=== PATIENT | female | born 1980 | race Two or more races ===

== ENCOUNTER 2020-03-15 06:00 | Day surgery (SDC) | payer OTHER | END 2020-03-15 09:35 | disposition home or self-care (01) | LOC: AMB-ENDOS 06:00 | PROVIDERS: ATTEND Surgery | DX: K29.50 Unspecified chronic gastritis without bleeding (principal); Z20.828 Contact with and (suspected) exposure to other viral communicable diseases ==

== ENCOUNTER 2021-05-22 12:05 | Outpatient (CLI) | payer OTHER | END 2021-05-22 12:38 | disposition home or self-care (01) | LOC: MAMO-SONO 12:05 | PROVIDERS: ATTEND Specialist | DX: E04.1 Nontoxic single thyroid nodule (principal); N64.59 Other signs and symptoms in breast; Z12.31 Encounter for screening mammogram for malignant neoplasm of breast ==

== ENCOUNTER 2021-10-23 06:00 | Day surgery (SDC) | payer OTHER ==
[2021-10-23] MEDS ORDERED: ULTRACET PO (12:39)
[2021-10-23] MEDS ORDERED: NEXIUM 24HR20 M1 PO (12:40)
[2021-10-23] MEDS ORDERED: MAGNESIUM CITR100 GM PO (12:40)
== END 2021-10-23 15:50 | disposition home or self-care (01) ==
LOC: CIR.AMB 06:00
PROVIDERS: ATTEND Surgery
DX: K80.10 Calculus of gallbladder with chronic cholecystitis without obstruction (principal); K43.2 Incisional hernia without obstruction or gangrene; G47.33 Obstructive sleep apnea (adult) (pediatric); Z98.84 Bariatric surgery status; K21.9 Gastro-esophageal reflux disease without esophagitis; E66.9 Obesity, unspecified

== ENCOUNTER 2022-05-27 06:41 | Outpatient (CLI) | payer OTHER ==
[~2022-05-27 06:41] MED LIST: MAGNESIUM CITR100 GM PO; NEXIUM 24HR20 M1 PO; ULTRACET PO
== END 2022-05-27 12:58 | disposition home or self-care (01) ==
LOC: LAB 06:41
PROVIDERS: ATTEND Obstetrics & Gynecology
DX: E11.9 Type 2 diabetes mellitus without complications (principal); E03.9 Hypothyroidism, unspecified; N39.0 Urinary tract infection, site not specified; Z11.4 Encounter for screening for human immunodeficiency virus [HIV]; D50.9 Iron deficiency anemia, unspecified; E78.2 Mixed hyperlipidemia; Z12.11 Encounter for screening for malignant neoplasm of colon; M25.50 Pain in unspecified joint; E79.0 Hyperuricemia without signs of inflammatory arthritis and tophaceous disease; D51.9 Vitamin B12 deficiency anemia, unspecified; Z01.818 Encounter for other preprocedural examination; E55.9 Vitamin D deficiency, unspecified; D64.89 Other specified anemias; N30.00 Acute cystitis without hematuria; E03.8 Other specified hypothyroidism; D68.8 Other specified coagulation defects; N72 Inflammatory disease of cervix uteri; R10.0 Acute abdomen; N95.1 Menopausal and female climacteric states; E28.39 Other primary ovarian failure; E04.1 Nontoxic single thyroid nodule; E78.00 Pure hypercholesterolemia, unspecified; E08.00 Diabetes mellitus due to underlying condition with hyperosmolarity without nonketotic hyperglycemic-hyperosmolar coma (NKHHC)

== ENCOUNTER 2022-05-27 07:42 | Outpatient (CLI) | payer OTHER | END 2022-05-27 07:52 | disposition home or self-care (01) | LOC: MAMO-SONO 07:42 | PROVIDERS: ATTEND Obstetrics & Gynecology | DX: Z12.31 Encounter for screening mammogram for malignant neoplasm of breast (principal); N60.11 Diffuse cystic mastopathy of right breast; N60.12 Diffuse cystic mastopathy of left breast ==

== ENCOUNTER 2022-09-10 06:22 | Day surgery (SDC) | payer OTHER ==
[~2022-09-10] VITALS: Ht 170.2 cm; Wt 63.0 kg
[2022-09-10] MEDS ORDERED: MIRALAX17 GM PO (09:42)
[2022-09-10] MEDS ORDERED: SURFAK240 M1 PO (09:42)
[2022-09-10] MEDS ORDERED: PERCOCET 5-3251 EACH PO (09:42)
[2022-09-10] MEDS ORDERED: NEURONTIN600 M1 PO (09:43)
== END 2022-09-10 13:00 | disposition home or self-care (01) ==
LOC: CIR.AMB 06:22
PROVIDERS: ATTEND Surgery
DX: K40.90 Unilateral inguinal hernia, without obstruction or gangrene, not specified as recurrent (principal); K42.0 Umbilical hernia with obstruction, without gangrene; Z20.822 Contact with and (suspected) exposure to COVID-19
CPT/HCPCS: 49650; 49592; C1781